=== PATIENT | male | born 1975 | race Caucasian/White ===

== ENCOUNTER 2016-10-04 09:11 | Emergency (ER) | payer OTHER ==
[~2016-10-04] VITALS: Ht 175.3 cm; Wt 99.8 kg
[2016-10-04 09:15] VITALS: BP 129/85
--- NOTE | 2016-10-04 09:20 | ED INFLUENZA/URI COMPLAINT ---
History of Present Illness General Chief Complaint: General Adult Stated Complaint: CUETO SORE THROAT Source: patient, old records Exam Limitations: no limitations Vital Signs & Intake/Output Vital Signs & Intake/Output Vital Signs Date Time Temp Pulse Resp B/P Pulse O2 O2 Flow FiO2 Ox Delivery Rate 10/04 0951 98 10/04 0915 97.4 90 20 129/85 97 Room Air Allergies Coded Allergies: No Known Allergies (10/04/16) Reconcile Medications Amoxicillin/Potassium Clav (Augmentin 875-125 Tablet) 875 MG-125 MG TABLET 1 TAB PO BID strep pharyngitis Triage Note: TRIAGE: PT TO ER C/C HEADACHE AND FEVER SINCE TUESDAY NIGHT AND SORE THROAT WHICH STARTED YESTERDAY. TAKING TYLENOL AND MOTRIN FOR SAME. AFEBRILE AT TRIAGE. STATES HIGHEST TEMP 101 ON TUESDAY. REPORTS SLIGHT NON PRODUCTIVE COUGH WHEN ASKED. Triage Nurses Notes Reviewed? yes Onset: Gradual Duration: day(s): (3), constant Timing: recent history Severity: mild, moderate Severity Numbers: 5 Prior Episodes/Possible Cause: occassional episodes No Modifying Factors: none Associated Symptoms: fever/chills, headache, nasal congestion, nasal drainage, sore throat HPI: 41 year old smoker with no medical history presents to emergency room complaining of a 3 day history of rhinorrhea congestion and sinus pressure frontal headaches, subjective fever chills which is been taking Tylenol Motrin associated with a 2 day history of a sore throat. He denies any sick contacts or recent travel. He is not taken anything for his symptoms this morning no chest pain shortness of breath, abdominal pain nausea or vomiting or diarrhea. He reports a nonproductive cough. No hemoptysis no sputum production symptoms are constant aching pressure-like Past History Travel History Traveled to [place] past 21 day No Medical History Any Pertinent Medical History? 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 No Review of Systems Review of Systems Constitutional: Reports: see HPI. All Other Systems: Reviewed and Negative Comments Review of systems: See HPI, All other systems negative. Constitutional, no chills no fever, no malaise HEENT: sore throat congestion, no ear pain Cardiovascular: No chest pain , no palpitation , no orthopnea no ankle swelling Skin, no rashes, no change in skin Respiratory: No dyspnea cough no sputum GI: No nausea no vomiting, no diarrhea, no bloating/constipation : No dysuria No hematuria, Muscle skeletal: No joint pain, no back pain, no neck pain, Neurologic: No numbness , no headache Psych: No stress Heme/endocrine: No bruising no bleeding Immunology: No lymphadenopathy Physical Exam Physical Exam General Appearance: well developed/nourished, alert, awake Ears, Nose, Throat: nasal congestion, nasal drainage, pharyngeal erythema Comments: Well-developed well-nourished patient in no apparent distress. Head/Face: Atraumatic, (+) maxillary/frontal sinus tenderness, no facial swelling Eyes: PERRL, EOMI, no conjunctival injection. No nystagmus Ear:External auditory canal and Tympanic membranes clear, no erythema, no FB. Nose: atraumatic.Normal inspection: No bleeding, no septal hematoma Throat: Moist mucous membranes.pharyngeal erythema no exudate normal. No pharyngeal erythema/exudate seen. No stridor/drooling or assymetry. No swelling or edema. Neck: Supple, no lymphadenopathy, FROM Back: FROM, Nontender Cardiovascular: Regular rate and rhythms no murmurs rubs or gallops, Respiratory: No respiratory distress. Patient speaking in full complete sentences. Breath sounds clear to auscultation bilaterally: NO W/R/R Extremities: full range of motion Neuro: Alert and oriented x3 Skin: Warm & dry;No appreciable rash on exposed skin Psych: Mood affect normal, normal memory normal judgment. Core Measures Severe Sepsis Present: No Septic Shock Present: No Progress Differential Diagnosis: influenza, otitis, pneumonia, pharyngitis, sinusitis Plan of Care: Orders Procedure Date/time Status THROAT CULTURE W/QUICK STREP 10/04 0920 Complete I discussed with the patient at length all of their results. I had an extensive conversation regarding need for close follow up with their primary care physician this week as well as return precautions. I answered all of their questions, they feel comfortable with the plan and follow-up care. I discussed the medications that they will receive with the patient. I gave them signs and symptoms that could indicate an adverse reaction. I have advised them to limit their activities until they can see how they respond to the medication. (SCAR CLARK,KERMIT) Initial ED EKG: none Departure Departure Time of Disposition: 938 Disposition: HOME OR SELF CARE Condition: Stable Clinical Impression Primary Impression: Strep throat Additional Instructions: augmentin as directed, tylenol or motrin every 4-6 hours. drink plenty of fluids. follow up with your pmd later this week, return with any concerns this was sent to [facility] Departure Forms: Customer Survey General Discharge Information Prescriptions: Current Visit Scripts Amoxicillin/Potassium Clav (Augmentin 875-125 Tablet) 1 TAB PO BID #14 TAB
[2016-10-04] MEDS ORDERED: AUGMENTIN 875-1 EACH PO (09:41)
== END 2016-10-04 09:50 ==
LOC: ERH 09:11
DX: J02.0 Streptococcal pharyngitis (principal)